=== PATIENT | female | born 1995 | race African-American/Black ===

== ENCOUNTER 2017-02-12 23:26 | Emergency (ER) | payer MEDICAID ==
[~2017-02-12] VITALS: Ht 170.2 cm; Wt 59.9 kg
[2017-02-12 23:32] VITALS: BP_SYST 138
[2017-02-13 03:32] VITALS: BP_SYST 132
== END 2017-02-13 03:32 | disposition home or self-care (01) ==
LOC: SED 23:26
DX: R51 Headache (principal); R06.02 Shortness of breath; J45.909 Unspecified asthma, uncomplicated; Z88.0 Allergy status to penicillin; Z88.1 Allergy status to other antibiotic agents
CPT/HCPCS: 99282